=== PATIENT | female | born 1995 | race Two or more races ===

== ENCOUNTER 2016-09-06 13:06 | Emergency (ER) | payer OTHER ==
[2016-09-06 13:22] LABS: URINE SOURCE CLEAN CATCH
[2016-09-06 13:26] LABS: URINE APPEARANCE CLEAR; URINE BILIRUBIN NEG (NEG); URINE BLOOD NEG (NEG); URINE COLOR YELLOW; URINE GLUCOSE NEG (NORM); URINE KETONE 1+ (NEG); URINE LEUKOCYTE ESTERASE NEG (NEG); URINE NITRATE NEG (NEG); URINE PH 5.5 (5-8); URINE PROTEIN NEG (NEG); URINE UROBILINOGEN 0.2 MG/DL (NORM)
[2016-09-06 13:27] LABS: MICRO INDICATED? NO
== END 2016-09-06 14:52 | disposition home or self-care (01) ==
LOC: SED 13:06
PROVIDERS: Emergency Medicine
DX: O99.281 Endocrine, nutritional and metabolic diseases complicating pregnancy, first trimester (principal); E86.0 Dehydration; O99.611 Diseases of the digestive system complicating pregnancy, first trimester; K21.9 Gastro-esophageal reflux disease without esophagitis; Z88.0 Allergy status to penicillin
CPT/HCPCS: 81003; 84702; 84703; 99284